=== PATIENT | male | born 1960 | race Caucasian/White ===

== ENCOUNTER 2018-12-25 11:33 | Emergency (ER) | payer SELFPAY ==
[2018-12-25 11:44] VITALS: BMI 31.2
--- NOTE | 2018-12-25 12:13 | PDOC ---
History of Present Illness - General Chief Complaint: Wound Stated Complaint: RT LEG WOUND Time Seen by Provider: 12/25/18 11:52 History Source: Patient Exam Limitations: No Limitations - History of Present Illness Initial Comments: 12/25/18 12:08 58 yo M smoker w/ no known PMhx comes in c/o 5 months of RLE rash which is very itchy and has been getting worse. He says that for the past 2 days, the RLE has been swollen and the rash has been getting worse. he went to an urgent care 1 month ago, was told that it was a fungal rash, was given a Rx for an antifungal cream, which he applied but it "was not working" so he stopped applying it. Denies ay other complaints today. Pt denies recent trauma/fall, denies any precipitating event to his symptoms, denies recent travel, no known sick contacts. No fever/chills, no NVD, no pain anywhere else, no prior h/o similar symptoms. No calf pain/tenderness, no recent travel/surgery, no h/o malignancy, no h/o DVT. No known ho diabetes, denies polyuria/polydipsia, (+)family h/o diabetes. Pt does not have a PMD Past History - Past Medical History Allergies/Adverse Reactions: Allergies Allergy/AdvReac Type Severity Reaction Status Date / Time No Known Allergies Allergy Verified 12/25/18 11:44 Home Medications: Ambulatory Orders NK [No Known Home Medication] 12/25/18 COPD: No - Suicide/Smoking/Psychosocial Hx Smoking History: Current every day smoker Number of Cigarettes Smoked Daily: 6 Information on smoking cessation initiated: No Hx Alcohol Use: Yes Drug/Substance Use Hx: No Review of Systems - Review of Systems Able to Perform ROS?: Yes Constitutional: No: Chills, Fever, Malaise, Night Sweats HEENTM: No: Eye Pain, Recent change in vision, Throat Pain Respiratory: No: Cough, Shortness of Breath Cardiac (ROS): No: Chest Pain, Palpitations, Chest Tightness ABD/GI: No: Diarrhea, Nausea, Vomiting, Abdominal cramping : No: Dysuria, Hematuria Musculoskeletal: No: Back Pain Integumentary: Yes: Rash Neurological: No: Headache, Numbness, Dizziness Psychiatric: No: Change in Appetite Endocrine: No: Unexplained Weight Loss *Physical Exam - Vital Signs Last Vital Signs Temp Pulse Resp BP Pulse Ox 98.7 F 89 16 129/78 98 12/25/18 11:40 12/25/18 11:40 12/25/18 11:40 12/25/18 11:40 12/25/18 11:40 - Physical Exam General Appearance: Yes: Nourished. No: Apparent Distress HEENT: positive: [place], Normal ENT Inspection, Normal Voice. negative: Pale Conjunctivae, Scleral Icterus (R), Scleral Icterus (L) Neck: positive: Supple. negative: Decreased range of motion, Tender midline Respiratory/Chest: positive: Lungs Clear, Normal Breath Sounds. negative: Respiratory Distress, Accessory Muscle Use Cardiovascular: positive: Regular Rhythm, Regular Rate Gastrointestinal/Abdominal: positive: Normal Bowel Sounds, Soft. negative: Tender Musculoskeletal: positive: Normal Inspection. negative: CVA Tenderness, Decreased Range of Motion Extremity: positive: Normal Capillary Refill, Normal Inspection, Normal Range of Motion, Other (RLE tib fib and dorsum with a scaly hyperpigmented rash on an erythematous base with mild surrounding erythema and mild warmth, no streaking, (+)ankle and RLE swelling, FROM R ankle/knee and toes, full sensory function. Bilateral equal bounding pulses. Good cap refill.) Integumentary: positive: Normal Color, Dry. negative: Jaundice, Rash Neurologic: positive: Fully Oriented, Alert, Normal Mood/Affect ED Treatment Course - LABORATORY CBC & Chemistry Diagram: 12/25/18 12:30 12/25/18 12:30 - RADIOLOGY Radiology Studies Ordered: Category Date Time Status LEG TIB/FIB-RIGHT [RAD] Stat Radiology 12/25/18 12:06 Ordered Medical Decision Making - Medical Decision Making 12/25/18 12:13 58 yo FM w/ superimposed cellulitis with likely underlying fungal infection. Will line and lab, check ESR, CRP, do a tibfib/foot xrays and will give IV antibiotics. 12/25/18 16:07 Change of shift, care of patient signed over to EZ Gutierrez who will follow up sono, reassess pt and decide on dispo plan. 58 yo M w/ superimposed cellulitis, underlying fungal infection, received vanc/zosyn. After sono results, please discuss with Dr. Chu for dispo plan. 12/25/18 16:09 *DC/Admit/Observation/Transfer Diagnosis at time of Disposition: Cellulitis Qualifiers: Site of cellulitis: extremity Site of cellulitis of extremity: lower extremity Laterality: right Qualified Code(s): L03.115 - Cellulitis of right lower limb - Referrals - Patient Instructions - Post Discharge Activity
[2018-12-25 12:50] LABS: BASO % 0.8 % (0-2.0); HEMATOCRIT 45.2 % (35.4-49); HEMOGLOBIN 16.1 GM/dL (11.7-16.9); LYMPH % 15.2 % (8-40); MCH 32.7 pg (25.7-33.7); MCHC 35.7 g/dl (32.0-35.9); MEAN CELL VOLUME 91.7 fl (80-96); MEAN PLT VOLUME 8.8 fl (7.5-11.1); MONO % 11.2 % (3.8-10.2); NEUT % 69.8 % (42.8-82.8); PLATELET COUNT 246 K/MM3 (134-434); RBC 4.93 M/mm3 (4.00-5.60); RDW 13.5 % (11.9-15.9); WHITE BLOOD COUNT 9.9 K/mm3 (4.0-10.0)
[2018-12-25 13:16] LABS: ALBUMIN 3.9 g/dl (3.4-5.0); BILIRUBIN,TOTAL 0.4 mg/dL (0.2-1); BLOOD UREA NITROGEN 20.2 mg/dL (7-18); CALCIUM 8.6 mg/dL (8.5-10.1); CREATININE 0.9 mg/dL (0.55-1.3); TOT PROT 7.1 g/dl (6.4-8.2)
[2018-12-25 13:20] LABS: INR 0.92 (0.83-1.09); PROTHROMBIN TIME (PATIENT) 10.9 SEC (9.7-13.0)
[2018-12-25] MEDS ORDERED: PIPERACILLIN/TAZOB 4.5 GM 4.5 GM in DEXTROSE 5%-WATER 100 ML IVPB ONE (13:38)
[2018-12-25] MEDS ORDERED: PIPERACILLIN/TAZOB 4.5 GM 4.5 GM/100 ML BAG IVPB ONE (13:59)
[2018-12-25] MEDS ORDERED: KETOROLAC TROMETHAMINE 15 MG/ML VIAL IVPUSH ONE (15:08)
[2018-12-25] MEDS ORDERED: SODIUM CHLORIDE 1,000 ML IV STA (15:09)
[2018-12-25] MEDS ORDERED: KETOROLAC TROMETHAMINE 15 MG/ML VIAL ONE (15:34)
--- NOTE | 2018-12-25 16:22 | PDOC ---
*Physical Exam - Vital Signs Last Vital Signs Temp Pulse Resp BP Pulse Ox 98.7 F 89 16 129/78 98 12/25/18 11:40 12/25/18 11:40 12/25/18 11:40 12/25/18 11:40 12/25/18 11:40 - Physical Exam General Appearance: Yes: Nourished, Appropriately Dressed. No: Apparent Distress Vascular Pulses: Dorsalis-Pedis (R): 2+, Doralis-Pedis (L): 2+ Extremity: positive: Normal Capillary Refill, Swelling, Erythema (R dorsum with associated flaking) Integumentary: positive: Swelling, Ecchymosis Neurologic: positive: Fully Oriented, Alert, Normal Mood/Affect, Normal Response , Motor Strength 09/04 ED Treatment Course - LABORATORY CBC & Chemistry Diagram: 12/25/18 12:30 12/25/18 12:30 - ADDITIONAL ORDERS Additional order review: Laboratory Results 12/25/18 12/25/18 12/25/18 12:30 12:30 12:30 PT with INR 10.90 INR 0.92 Sodium 141 Potassium 4.0 Chloride 109 H Carbon Dioxide 26 Anion Gap 7 L BUN 20.2 H Creatinine 0.9 Est GFR (CKD-EPI)AfAm 109.50 Est GFR (CKD-EPI)NonAf 94.48 Random Glucose 119 H Calcium 8.6 Total Bilirubin 0.4 AST 74 H ALT 144 H Alkaline Phosphatase 99 C-Reactive Protein 0.7 H Total Protein 7.1 Albumin 3.9 Blood Type O POSITIVE Antibody Screen Negative 12/25/18 12:30 RBC 4.93 MCV 91.7 MCHC 35.7 RDW 13.5 MPV 8.8 Neutrophils % 69.8 Lymphocytes % 15.2 Monocytes % 11.2 H Eosinophils % 3.0 Basophils % 0.8 - Medications Given in the ED: ED Medications Discontinued Medications Generic Name Dose Route Start Last Admin Trade Name Freq PRN Reason Stop Dose Admin Piperacillin Sod/Tazobactam 100 mls @ 200 mls/hr 12/25/18 13:38 12/25/18 14: 04 Sod 4.5 gm/ Dextrose IVPB 12/25/18 14:07 200 mls/hr ONCE ONE Administration Protocol Sodium Chloride 1,000 mls @ 1,000 mls/hr 12/25/18 15:09 12/25/18 15:46 Normal Saline - IV 12/25/18 16:08 1,000 mls/hr ASDIR STA Administration Ketorolac Tromethamine 15 mg 12/25/18 15:08 12/25/18 15:46 Toradol Injection - IVPUSH 12/25/18 15:09 15 mg ONCE ONE Administration Medical Decision Making - Medical Decision Making 12/25/18 17:24 Sign out received from EZ Burnham Pt doppler negative for clot in the R leg Cellulitis vs vaculitis Will treat with abx at this time and mupirocin cream Refer to PCP DC home I discussed the physical exam findings, ancillary test results and final diagnoses with the patient. I answered all of the patient's questions. The patient was satisfied with the care received and felt comfortable with the discharge plan and treatment plan. The Patient agrees to follow up with the primary care physician/specialist within 24-72 hours. Return precautions were given. *DC/Admit/Observation/Transfer Diagnosis at time of Disposition: Cellulitis Qualifiers: Site of cellulitis: extremity Site of cellulitis of extremity: lower extremity Laterality: right Qualified Code(s): L03.115 - Cellulitis of right lower limb - Discharge Dispostion Disposition: HOME Condition at time of disposition: Stable Decision to Admit order: No - Prescriptions Prescriptions: Cephalexin Monohydrate [Keflex -] 500 mg PO BID #14 capsule Mupirocin Ointment [Bactroban 2% Ointment -] 1 applic TP BID #1 tube Sulfamethoxazole/Trimethoprim [Bactrim Ds -] 1 tab PO BID #14 tablet - Referrals Referrals: Hieu Lau MD [Staff Physician] - - Patient Instructions Printed Discharge Instructions: DI for Cellulitis -- Adult Additional Instructions: You have cellulitis. This is a skin infection. Please take the Bactrim and Keflex twice a day for one week. Please take all the antibiotics even if you feel better. You may take Tylenol or Motrin as needed for pain. Follow the dosing instruction on the bottle Use the mupirocin cream on the area twice a day. Please follow up with your primary care doctor in 1 week. If you do not have one , a referral has been provided to you. Return to the emergency department if you have worsening redness, fevers, increasing pain, or have any changes in your symptoms. [place]okasta butler. Jo-Ann esteves dilcia infeccin de la piel. [place] Bactrim y Keflex dos veces al da isela dilcia semana. [place] todos los antibiticos incluso si se siente mejor. Puede abhinav Tylenol o Motrin segn sea necesario para el dolor. Siga las instrucciones de dosificacin en la botella. Use la crema de mupirocina en el mikaela dos veces al da. Lon un seguimiento con quiroga mdico de atencin primaria en 1 semana. Si no tiene raquel, se le cardona enviado dilcia referencia. Regrese al departamento de emergencias si tiene empeoramiento del enrojecimiento , fiebre, aumento del dolor o si tiene algn cambio en alexandra sntomas. - Post Discharge Activity Forms/Work/School Notes: Back to Work
[2018-12-25 17:53] VITALS: BP 130/62; PULSE 62; TEMP 98.2
== END 2018-12-25 17:51 | disposition home or self-care (01) ==
LOC: JER 11:33
PROC: 3E0337Z Introduction of Electrolytic and Water Balance Substance into Peripheral Vein, Percutaneous Approach (ICD-10-PCS; principal; 2018-12-25)
PROC: 3E03329 Introduction of Other Anti-infective into Peripheral Vein, Percutaneous Approach (ICD-10-PCS; 2018-12-25)
PROC: 3E0333Z Introduction of Anti-inflammatory into Peripheral Vein, Percutaneous Approach (ICD-10-PCS; 2018-12-25)
DX: L03.115 Cellulitis of right lower limb (principal)
CPT/HCPCS: 36415; 73590-TC-RT-FY; 73630-TC-LT; 73630-TC-RT-FY; 80053; 85025; 85610; 85651; 86140; 86850; 86900; 86901; 93971-TC; 99283-25; J7030

== ENCOUNTER 2019-01-03 13:39 | Emergency (ER) | payer SELFPAY ==
[2019-01-03 13:48] VITALS: BP 121/76; PULSE 102; TEMP 98.4; BMI 29.2
--- NOTE | 2019-01-03 14:35 | PDOC ---
History of Present Illness - General Chief Complaint: Rash Stated Complaint: RASH Time Seen by Provider: 01/03/19 13:59 - History of Present Illness Initial Comments: 01/03/19 14:34 58-year-old male without comorbidities presents for evaluation of rash increasing over the last 5 days. Seen for cellulitis he was placed on Bactrim and Keflex as well as Bactroban ointment. His cellulitis has resolved and improved he has no systemic symptoms however over the last for 5 days a rash developed on his upper extremities and neck Past History - Past Medical History Allergies/Adverse Reactions: Allergies Allergy/AdvReac Type Severity Reaction Status Date / Time No Known Allergies Allergy Verified 01/03/19 13:50 Home Medications: Ambulatory Orders Cephalexin Monohydrate [Keflex -] 500 mg PO BID #14 capsule 12/25/18 Mupirocin Ointment [Bactroban 2% Ointment -] 1 applic TP BID #1 tube 12/25/18 Sulfamethoxazole/Trimethoprim [Bactrim Ds -] 1 tab PO BID #14 tablet 12/25/18 Methylprednisolone [Medrol Dose John] 4 mg PO ASDIR #21 tablet 01/03/19 Mupirocin Cream [Bactroban 2% Cream -] 1 applic TP BID #1 tube 01/03/19 COPD: No - Suicide/Smoking/Psychosocial Hx Smoking History: Current every day smoker Number of Cigarettes Smoked Daily: 5 Information on smoking cessation initiated: No Hx Alcohol Use: Yes Drug/Substance Use Hx: No Review of Systems - Review of Systems Constitutional: No: Fever HEENTM: No: Throat Pain, Throat Swelling, Difficulty Swallowing Integumentary: Yes: Pruritus, Rash *Physical Exam - Vital Signs Last Vital Signs Temp Pulse Resp BP Pulse Ox 98.4 F 102 H 16 121/76 97 01/03/19 13:46 01/03/19 13:46 01/03/19 13:46 01/03/19 13:46 01/03/19 13:46 - Physical Exam Comments: 01/03/19 14:33 HEAD: NC/AT EYES: Conjuntiva clear Ears: Canals and TM's normal NOSE: No d/c THROAT: Moist mucous membrances, oral pharanx clear, uvula midline NECK: Supple without adenopathy CARDIAC: S1 S2 LUNGS: CTA Full and Equal breath sounds ABDOMEN: Soft NT ND MS: Full ROM in all joints without edema NEUROLOGIC: No gross sensory or motor deficits, NVID SKIN: Normal color and temperature there are diffuse wheals on the neck and arms as well as the hands. The area of prior cellulitis on his lower extremity shows no indication of infection. Medical Decision Making - Medical Decision Making 01/03/19 14:32 I have discontinued the oral Keflex and Bactrim. I have renewed the prescription for Bactroban. There is no indication of cellulitis however there are some open abrasions on the area which was in question. I have started the Medrol Dosepak and I will have the patient follow-up with his internal medicine doctor. We had a long discussion about this he is in agreement with the plan. *DC/Admit/Observation/Transfer Diagnosis at time of Disposition: Allergic drug rash - Discharge Dispostion Disposition: HOME Condition at time of disposition: Stable Decision to Admit order: No - Referrals Referrals: Xavier Torres MD [Staff Physician] - - Patient Instructions Printed Discharge Instructions: DI for Adverse Drug Reaction -- Allergic Additional Instructions: Discontinue the oral antibiotics you have been taking. This may have caused her rash. Follow-up with internal medicine in 1-2 days for further evaluation and treatment options. You must follow-up with internal medicine without fail. Please start the steroid pack today and return to the emergency room should symptoms worsen. I have also reviewed her topical antibiotic cream. - Post Discharge Activity
== END 2019-01-03 14:52 | disposition home or self-care (01) ==
LOC: JER 13:39
DX: L27.0 Generalized skin eruption due to drugs and medicaments taken internally (principal); T36.1X5A Adverse effect of cephalosporins and other beta-lactam antibiotics, initial encounter; Y92.038 Other place in apartment as the place of occurrence of the external cause
CPT/HCPCS: 99281-25

== ENCOUNTER 2020-10-21 | Emergency (ER) | payer SELFPAY ==
[2020-10-21 00:08] VITALS: BMI 27.4
[2020-10-21] MEDS ORDERED: LACTATED RINGERS SOLUTION 1000 ML INFUS.BAG IV ONE ×2 (00:20→01:51)
[2020-10-21] MEDS ORDERED: THIAMINE HCL 200 MG/2 ML VIAL IVPB ONE (00:20)
[2020-10-21] MEDS ORDERED: THIAMINE HCL 200 MG/2 ML VIAL ONE (00:30)
[2020-10-21 00:38] LABS: EOS % 1.7 % (0-4.5); HEMATOCRIT 44.6 % (35.4-49); HEMOGLOBIN 15.7 GM/dL (11.7-16.9); LYMPH % 31.9 % (8-40); MCH 30.7 pg (25.7-33.7); MCHC 35.1 g/dl (32.0-35.9); MEAN CELL VOLUME 87.4 fl (80-96); MEAN PLT VOLUME 7.3 fl (7.5-11.1); MONO % 9.2 % (3.8-10.2); NEUT % 56.2 % (42.8-82.8); PLATELET COUNT 268 10^3/uL (134-434); RDW 13.9 % (11.9-15.9); WHITE BLOOD COUNT 8.1 K/mm3 (4.0-10.0)
[2020-10-21 00:53] LABS: CHLORIDE 110 mmol/L (98-107); SODIUM 143 mmol/L (136-145)
[2020-10-21 00:55] LABS: CALCIUM 9.1 mg/dL (8.5-10.1)
[2020-10-21 00:56] LABS: ANION GAP 11 MMOL/L (8-16); BLOOD UREA NITROGEN 10.6 mg/dL (7-18); CO2 22 mmol/L (21-32); GLUCOSE,RANDOM 118 mg/dL (74-106)
[2020-10-21 00:57] LABS: PROTHROMBIN TIME (PATIENT) 12.1 SEC (9.7-13.0)
[2020-10-21 00:59] LABS: CREATININE 0.8 mg/dL (0.55-1.3); SGOT/AST 50 U/L (15-37); SGPT/ALT 68 U/L (13-61)
[2020-10-21 01:00] LABS: ACTIVATED PTT 28.6 SECONDS (25.2-36.5); BILIRUBIN,TOTAL 0.3 mg/dL (0.2-1); TOT PROT 7.6 g/dl (6.4-8.2)
[2020-10-21 01:02] LABS: ALK PHOS 79 U/L (45-117)
[2020-10-21] MEDS ORDERED: MULTIVIT INJ. ADULT COMBO WITH VIT K 1 COMBO 10 ML VIAL IV SCH ×3 (01:51→10:00)
[2020-10-21 05:49] VITALS: BP 97/56; PULSE 71
[2020-10-21 05:50] VITALS: TEMP 97.8
== END 2020-10-21 07:03 | disposition home or self-care (01) ==
LOC: JER
PROC: 3E033NZ Introduction of Analgesics, Hypnotics, Sedatives into Peripheral Vein, Percutaneous Approach (ICD-10-PCS; principal; 2020-10-21)
DX: F10.920 Alcohol use, unspecified with intoxication, uncomplicated (principal)
CPT/HCPCS: 36415; 70450-TC; 71045-TC-FY; 72125-TC; 80053; 80307; 84484; 85025; 85610; 85730; 93005; 93010; 99285-25